=== PATIENT | female | born 1960 ===

== ENCOUNTER 2018-02-11 05:03 | Day surgery (SDC) | payer OTHER ==
[~2018-02-11] VITALS: Ht 167.6 cm; Wt 63.5 kg
[2018-02-11] VITALS (12 sets, daily range): BP systolic 119–139; BP diastolic 64–82
[~2018-02-11 05:03] MED LIST: Clindamycin 600mg 50 ML IV ONE; LOSARTAN POTAS100 MG ORAL; TRAMADOL HCL50 MG ORAL; TRAZODONE HCL50 MG ORAL; celeBREX 200mg Cap **SURGERY PATIENTS ONLY ORAL ONE; oxyCONTIN 20mg tab ORAL ONE
[2018-02-11] MEDS ORDERED: celeBREX 200mg Cap **SURGERY PATIENTS ONLY ORAL ONE (06:00)
[2018-02-11] MEDS ORDERED: oxyCONTIN 20mg tab ORAL ONE (06:00)
[2018-02-11] MEDS ORDERED: Clindamycin 600mg/D5W 50ml IV ONE (06:00)
[2018-02-11] MEDS ORDERED: LR 1000ml 1,000 ML IVLG SCH (06:37)
--- NOTE | 2018-02-11 06:43 | Anethesia Preoperative Eval ---
Anesthesia Pre-op PMH/ROS General Date of Evaluation: Feb 11, 2018 Time of Evaluation: 07:16 Anesthesiologist: Davonte ASA Score: ASA 2 Mallampati Score Class I : Soft palate, uvula, fauces, pillars visible Class II: Soft palate, uvula, fauces visible Class III: Soft palate, base of uvula visible Class IV: Only hard plate visible Mallampati Classification: Class I Surgeon: Alonso Diagnosis: L Shoulder Pain Surgical Procedure: L Shoulder Arthroscopy Anesthesia History: none Family History: no anesthesia problems Allergies: Coded Allergies: PENICILLINS (Verified Allergy, Mild, 02/10/18) SKIN RASH Medications: see eMAR Patient NPO?: Yes Past Medical History Cardiovascular: Reports: HTN Neurologic/Psychiatric: Reports: other - Migranes Anesthesia Pre-op Phys. Exam Physician Exam Last Vital Signs Date Time Temp Pulse Resp B/P (MAP) Pulse Ox O2 Delivery O2 Flow Rate FiO2 02/11/18 05:58 Room Air 02/11/18 05:44 97.0 60 18 125/67 97 Constitutional: NAD Neurologic: CN 2-12 intact Cardiovascular: RRR Respiratory: CTA Gastrointestinal: S/NT/ND Airway Exam Mallampati Score: Class I MO: limited ROM: limited Teeth: intact Anesthesia Pre-op A/P Risk Assessment & Plan Assessment: ASA 2 Plan: GA, Supraclavicular Block, SED Status Change Before Surgery: No Pre-Antibiotics Dru Gram Ancef IV Given Within 1 Hr of Incision: Yes Time Given: 08:16 Vincenzo Gong MD Feb 11, 2018 06:43
[2018-02-11] MEDS ORDERED: oxyCODONE HCL/Acetaminophen 5/325mg ORAL PRN (06:45)
[2018-02-11] MEDS ORDERED: DiphenhydrAMINE 50mg/ml Inj IVP PRN (06:45)
[2018-02-11] MEDS ORDERED: HYDROcodone/Acetamin 7.5/325 tab ORAL PRN (06:45)
[2018-02-11] MEDS ORDERED: Ketorolac 30mg Inj IV PRN ×2 (06:45)
[2018-02-11] MEDS ORDERED: Meperidine 50mg/ml Inj(FOR RIGORS ONLY) IVP PRN (06:45)
[2018-02-11] MEDS ORDERED: Atropine Sulfate 0.4mg/ml inj IVP PRN (06:45)
[2018-02-11] MEDS ORDERED: Norco 5mg/325mg tab ORAL PRN ×2 (06:45→07:15)
[2018-02-11] MEDS ORDERED: LORazepam Inj 2mg/ml 1ml IV PRN (06:45)
[2018-02-11] MEDS ORDERED: Metoclopramide 10mg/2ml Inj IVP PRN (06:45)
[2018-02-11] MEDS ORDERED: fentaNYL 100 mcg/2 mL IV PRN (06:45)
[2018-02-11] MEDS ORDERED: Hydromorphone 0.5mg/0.5ml inj IVP PRN (06:45)
[2018-02-11] MEDS ORDERED: Midazolam 2mg/2ml Inj IVP PRN (06:45)
[2018-02-11] MEDS ORDERED: Propofol 200mg/20ml IV ONE (06:48)
[2018-02-11] MEDS ORDERED: Lidocaine 1% MPF 10mg/ml 5ml ONE (06:48)
[2018-02-11] MEDS ORDERED: Dexamethasone 4mg/ml vial ONE ×2 (06:48→06:49)
[2018-02-11] MEDS ORDERED: Sodium Chloride 10ml vial INJ ONE (06:48)
[2018-02-11] MEDS ORDERED: EPINEPHrine 1mg/1ml Amp ONE ×2 (06:49→07:06)
[2018-02-11] MEDS ORDERED: Ropivacaine 5mg/ml Vial 30ml INJ ONE ×2 (06:49→07:06)
[2018-02-11] MEDS ORDERED: Alfentanil 2ml Inj ONE (06:50)
--- NOTE | 2018-02-11 06:56 | Immediate Post-Op Evaluation ---
Immediate Post-Op Evalulation Immediate Post-Op Evalulation Procedure: L Shoulder Arthroscopy Date of Evaluation: Feb 11, 2018 Time of Evaluation: 09:39 IV Fluids: 500 LR Blood Products: 0 Estimated Blood Loss: 20 Urinary Output: 0 Blood Pressure Systolic: 131 Blood Pressure Diastolic: 67 Pulse Rate: 92 Respiratory Rate: 16 O2 Sat by Pulse Oximetry: 100 Temperature (Fahrenheit): 97.3 Pain Score (1-10): 2 Nausea: No Vomiting: No Complications 0 Patient Status: awake, reacts, patent, extubated, none Hydration Status: adequate Dru Gram Ancef IV Given Within 1 Hr of Incision: Yes Time Given: 08:16 Vincenzo Gong MD Feb 11, 2018 06:56
--- NOTE | 2018-02-11 06:56 | 48 Hour Post Anesthesia Eval ---
Post Anesthesia Evaluation Procedure: L Shoulder Arthroscopy Date of Evaluation: Feb 11, 2018 Time of Evaluation: 11:46 Blood Pressure Systolic: 132 0: 78 Pulse Rate: 78 Respiratory Rate: 18 Temperature (Fahrenheit): 98.2 O2 Sat by Pulse Oximetry: 100 Airway: patent Nausea: No Vomiting: No Pain Intensity: 1 Hydration Status: adequate Cardiopulmonary Status: Stable Mental Status/LOC: patient returned to baseline Follow-up Care/Observations: 0 Post-Anesthesia Complications: 0 Follow-up care needed: ready to discharge Vincenzo Gong MD Feb 11, 2018 06:56
--- NOTE | 2018-02-11 07:02 | Pre-Procedure Note/Attestation ---
Pre-Procedure Note/Attestation Complete Prior to Procedure Planned Procedure: left Procedure Narrative: shoulder arthroscopy, sad Indications for Procedure Pre-Operative Diagnosis: left shoulder impingement Attestation I attest that I discussed the nature of the procedure; its benefits; risks and complications; and alternatives (and the risks and benefits of such alternatives ), prior to the procedure, with the patient (or the patient's legal enrollment eligibility representative). I attest that, if there was a reasonable possibility of needing a blood transfusion, the patient (or the patient's legal enrollment eligibility representative) was given the [facility] standardized written summary, pursuant to the [place]mer Debbie Blood Safety Act ([place] Health and Safety Code # 1645, as amended). I attest that I re-evaluated the patient just prior to the surgery and that there has been no change in the patient's H&P, except as documented below: Jensen Gupta MD Feb 11, 2018 07:02
--- NOTE | 2018-02-11 07:02 | Operative Note - PDOC ---
Operative Note Operative Note Pre-op Diagnosis: left shoulder impingement Procedure: see op report Post-op Diagnosis: same as pre-op plus Operative Findings: consistent w/pre-op dx studies Anesthesia: MAC Specimen: none Complications: none Estimated Blood Loss: none Implant(s) used?: Jensen Sierra MD Feb 11, 2018 07:02
[2018-02-11] MEDS ORDERED: Morphine Sulfate PF 0 ML ONE (07:05)
[2018-02-11] MEDS ORDERED: Bupivacaine w/Epi 0.25% 30ml Vial INJ ONE (07:06)
[2018-02-11] MEDS ORDERED: Kenalog-40 1ml Vial ONE (07:06)
[2018-02-11] MEDS ORDERED: Tylenol #3 tab (300mg/30mg) ORAL PRN (07:15)
[2018-02-11] MEDS ORDERED: HYDROmorphone 1mg/ml Carpuject SUBQ PRN (07:15)
[2018-02-11] MEDS ORDERED: D5 1/2NS 1,000 ML IV SCH (07:15)
[2018-02-11] MEDS ORDERED: LR 1000ml ONE (07:16)
[2018-02-11] MEDS ORDERED: Sterile Water Irrig 1000ml IRRIG ONE (07:16)
[2018-02-11] MEDS ORDERED: NS Irrig 4000ml IRRIG ONE (07:16)
--- NOTE | 2018-02-11 18:30 | Operative Note - Dictated ---
DATE OF OPERATION: 02/11/2018 PREOPERATIVE DIAGNOSIS: Left shoulder traumatic impingement syndrome. POSTOPERATIVE DIAGNOSIS: Left shoulder traumatic impingement syndrome. PROCEDURES: 1. Left shoulder diagnostic arthroscopy. 2. Left shoulder decompression bursectomy and release of the CA ligament. SURGEON: Jensen Gupta M.D. ANESTHESIA: Interscalene with general. INDICATION FOR PROCEDURE: The patient is a pleasant 58-year-old female with continued progressive pain with overhead activities. She failed conservative treatment, elected to undergo left shoulder diagnostic arthroscopy and subacromial decompression bursectomy. The risks, limitations, expectations, and complications of the procedure were discussed in detail. All questions were addressed. DESCRIPTION OF PROCEDURE: After informed consent was obtained, the patient was brought to the operating room. The patient was placed under interscalene and general anesthetic. The patient was then carefully placed in beach-chair position. Left shoulder was prepped and draped in sterile manner. Time-out was performed. Portal sites were injected with 0.25% Marcaine with epinephrine. Inferolateral stab incision was then made. Trocar was introduced into the shoulder joint. Systematic tour of the shoulder was performed. There was some chondral damage. The anterior labrum appeared to be intact along with the superior labrum. Biceps tendon and subscap was intact along with the articular side of the rotator cuff. The camera was then repositioned in the subacromial space and hypertrophic bursal tissue was visualized. Complete bursectomy was performed. The CA ligament was released and the acromion was identified. Acromioplasty was completed from beginning first from lateral to medial and then from posterior to anterior. The bursectomy was then continued posteriorly. Once that was done, the bursal side of the rotator cuff was evaluated and noted to be free of any damage. At this point, the instruments were removed. Portal sites were closed with 3-0 Monocryl sutures. Steri-Strips and a sterile dressing were applied. The patient was awoken and taken to recovery room with stable vital signs. ESTIMATED BLOOD LOSS: None. COMPLICATIONS: None. SPECIMENS: None. IMPLANTS: None. Jensen Gupta M.D. DR: Kimberly JOB#: [id number] CC:
== END 2018-02-11 11:00 | disposition home or self-care (01) ==
LOC: SUR 05:03
DX: M75.42 Impingement syndrome of left shoulder (principal); I10 Essential (primary) hypertension; Z88.0 Allergy status to penicillin
CPT/HCPCS: 29822; J0171; J0690; J1100; J1885; J2250; J2405; J2704; J2795; J3301; J3490; 94003; 94150